=== PATIENT | male | born 1940 | race Caucasian/White ===

== ENCOUNTER 2017-05-24 18:55 | Inpatient (IN) | payer MEDICARE, BC ==
[~2017-05-24] VITALS: Ht 180.3 cm; Wt 90.7 kg
[~2017-05-24 18:55] MED LIST: ATOR10TA69 PO; CLOP75TA33 PO; LACT1CAP56 PO; LEVO75TA7 PO; LORA5SOL6 PO; METF500T4 PO; MULT-1203 PO; PIOG30TA10 PO; PROT40 PO; UBID100C12 PO; VALS40TA4 PO; VIT1TABL86 PO
[2017-05-24] MEDS ORDERED: DEXTROSE 50% WATER 50ML SYRINGE IV PRN (19:45)
[2017-05-24] MEDS ORDERED: CLONIDINE 0.1MG TABLET PO PRN (19:45)
[2017-05-24] MEDS ORDERED: TRAMADOL 50MG TABLET PO PRN (19:45)
[2017-05-24] MEDS ORDERED: NA PHOS,M-B/NA PHOS,DI-BA ENEMA 118ML PR PRN (19:45)
[2017-05-24] MEDS ORDERED: GUAIFENESIN 200MG/10ML SUGAR FREE UDC PO PRN (19:45)
[2017-05-24] MEDS ORDERED: ACETAMINOPHEN 650MG/20.3ML UDC PO PRN (19:45)
[2017-05-24] MEDS ORDERED: ZOLPIDEM TARTRATE 5MG TABLET PO PRN (19:45)
[2017-05-24] MEDS ORDERED: ONDANSETRON HCL 4MG TABLET PO PRN (19:45)
[2017-05-24] MEDS ORDERED: DOCUSATE SODIUM 100MG CAPSULE PO PRN (19:45)
[2017-05-24] MEDS ORDERED: DIPHENHYDRAMINE 25MG CAPSULE PO PRN (19:45)
[2017-05-24] MEDS ORDERED: NITROGLYCERIN 0.4MG TABLET SL SL PRN (19:45)
[2017-05-24] MEDS ORDERED: MAGNESIUM/ALUMINUM HYDROXIDE/SIMETHICONE 30ML UDC PO PRN (19:45)
[2017-05-24] MEDS ORDERED: IPRATROPIUM/ALBUTEROL 0.5-3(2.5)MG/3ML NEB HHN PRN (19:45)
[2017-05-24] MEDS ORDERED: LORAZEPAM 0.5MG TABLET PO PRN (19:45)
[2017-05-24 20:00] VITALS: BP 131/76
[2017-05-24 20:30] VITALS: BP 131/76
[2017-05-24] MEDS: ATORVASTATIN CALCIUM 10MG TABLET PO SCH (21:09)
[2017-05-24] MEDS: BLOOD SUGAR DIAGNOSTIC STRIP TEST SCH (21:10)
[2017-05-24] MEDS: FAMOTIDINE 20MG TABLET PO SCH (21:10)
[2017-05-24] MEDS: LOSARTAN POTASSIUM 25 MG TABLET PO SCH (21:10)
[2017-05-24] MEDS: INSULIN LISPRO 100 UNITS/ML SUBCUT SCH (21:12)
[2017-05-25] MEDS: BLOOD SUGAR DIAGNOSTIC STRIP TEST SCH ×4 (06:16→21:13)
[2017-05-25] MEDS: LEVOTHYROXINE SODIUM 75MCG TABLET PO SCH (06:43)
[2017-05-25] MEDS: INSULIN LISPRO 100 UNITS/ML SUBCUT SCH ×4 (06:47→21:00)
[2017-05-25 07:00] LABS: BASOPHILS % 0.4 % (0.0-2.0); EOSINOPHILS % 2.3 % (0.0-5.0); HEMATOCRIT. 41.8 % (42.0-52.0); HEMOGLOBIN. 14.4 g/dL (14.0-18.0); LYMPHOCYTES % 8.6 % (20.0-50.0); MEAN CORPUSCULAR HEMOGLOBIN 32.6 pg (28.0-32.0); MEAN CORPUSCULAR VOLUME 94.4 fL (80.0-94.0); MEAN PLATELET VOLUME 9.3 fl (7.4-10.4); MONOCYTES % 14.5 % (2.0-8.0); NEUTROPHILS % 74.2 % (40.0-76.0); PLATELET 179 x1000/uL (130-400); RED BLOOD CELL COUNT 4.43 mill/uL (4.7-6.1); RED CELL DISTRIBUTION WIDTH 13.2 % (11.6-14.6)
[2017-05-25 07:37] LABS: CARBON DIOXIDE 27 mEq/L (21-32); CHLORIDE 101 mEq/L (98-107)
[2017-05-25 08:00] VITALS: BP 144/76
[2017-05-25] MEDS: LOSARTAN POTASSIUM 25 MG TABLET PO SCH ×2 (08:49→21:11)
[2017-05-25] MEDS: FAMOTIDINE 20MG TABLET PO SCH ×2 (09:07→21:11)
[2017-05-25] MEDS: CLOPIDOGREL 75MG TABLET PO SCH (09:07)
[2017-05-25] MEDS: ASPIRIN 81MG EC TABLET PO SCH (09:08)
[2017-05-25] MEDS: MAGNESIUM OXIDE 400MG TABLET PO SCH (09:08)
[2017-05-25] MEDS: CHOLECALCIFEROL (VIT D3) 400 UNIT TABLET PO SCH (09:08)
[2017-05-25] MEDS: ENOXAPARIN 40MG/0.4ML SYR SUBCUT SCH (09:11)
[2017-05-25 20:00] VITALS: BP 114/62
[2017-05-25] MEDS: ATORVASTATIN CALCIUM 10MG TABLET PO SCH (21:11)
[2017-05-25] MEDS: AMLODIPINE 5MG TABLET PO SCH (21:12)
[2017-05-26] MEDS: BLOOD SUGAR DIAGNOSTIC STRIP TEST SCH ×4 (06:11→20:47)
[2017-05-26] MEDS: LEVOTHYROXINE SODIUM 75MCG TABLET PO SCH (06:11)
[2017-05-26] MEDS: INSULIN LISPRO 100 UNITS/ML SUBCUT SCH ×4 (06:11→20:47)
[2017-05-26 08:24] VITALS: BP 117/60
[2017-05-26] MEDS: ASPIRIN 81MG EC TABLET PO SCH (09:39)
[2017-05-26] MEDS: MAGNESIUM OXIDE 400MG TABLET PO SCH (09:39)
[2017-05-26] MEDS: CHOLECALCIFEROL (VIT D3) 400 UNIT TABLET PO SCH (09:39)
[2017-05-26] MEDS: CLOPIDOGREL 75MG TABLET PO SCH (09:39)
[2017-05-26] MEDS: FAMOTIDINE 20MG TABLET PO SCH ×2 (09:40→20:23)
[2017-05-26] MEDS: AMLODIPINE 5MG TABLET PO SCH ×2 (09:40→20:24)
[2017-05-26] MEDS: LOSARTAN POTASSIUM 25 MG TABLET PO SCH ×2 (09:41→20:23)
[2017-05-26] MEDS: ENOXAPARIN 40MG/0.4ML SYR SUBCUT SCH (09:42)
[2017-05-26 15:00] VITALS: BP 88/52
[2017-05-26 15:10] VITALS: BP 91/56
[2017-05-26 15:40] VITALS: BP 100/54
[2017-05-26 20:00] VITALS: BP 99/45
[2017-05-26] MEDS: ATORVASTATIN CALCIUM 10MG TABLET PO SCH (20:23)
[2017-05-27 04:00] VITALS: BP 116/64
[2017-05-27] MEDS: LEVOTHYROXINE SODIUM 75MCG TABLET PO SCH (06:07)
[2017-05-27] MEDS: BLOOD SUGAR DIAGNOSTIC STRIP TEST SCH ×4 (06:07→20:44)
[2017-05-27] MEDS: INSULIN LISPRO 100 UNITS/ML SUBCUT SCH ×4 (06:35→20:44)
[2017-05-27 07:21] LABS: AMMONIA 29 uMol/L (<32)
[2017-05-27 08:00] VITALS: BP 104/64
[2017-05-27] MEDS: MAGNESIUM OXIDE 400MG TABLET PO SCH (08:17)
[2017-05-27] MEDS: CHOLECALCIFEROL (VIT D3) 400 UNIT TABLET PO SCH (08:17)
[2017-05-27] MEDS: ASPIRIN 81MG EC TABLET PO SCH (08:17)
[2017-05-27] MEDS: FAMOTIDINE 20MG TABLET PO SCH ×2 (08:18→20:31)
[2017-05-27] MEDS: ENOXAPARIN 40MG/0.4ML SYR SUBCUT SCH (08:18)
[2017-05-27] MEDS: CLOPIDOGREL 75MG TABLET PO SCH (08:18)
[2017-05-27] MEDS: LOSARTAN POTASSIUM 25 MG TABLET PO SCH ×2 (08:19→20:31)
[2017-05-27] MEDS: AMLODIPINE 5MG TABLET PO SCH (08:21)
[2017-05-27 13:56] VITALS: BP 119/65
[2017-05-27 20:00] VITALS: BP 123/61
[2017-05-27] MEDS: ATORVASTATIN CALCIUM 10MG TABLET PO SCH (20:31)
[2017-05-28] MEDS: BLOOD SUGAR DIAGNOSTIC STRIP TEST SCH ×4 (06:08→20:37)
[2017-05-28] MEDS: LEVOTHYROXINE SODIUM 75MCG TABLET PO SCH (06:08)
[2017-05-28] MEDS: INSULIN LISPRO 100 UNITS/ML SUBCUT SCH ×4 (06:36→20:36)
[2017-05-28 08:00] VITALS: BP 120/62
[2017-05-28] MEDS: ASPIRIN 81MG EC TABLET PO SCH (09:25)
[2017-05-28] MEDS: LOSARTAN POTASSIUM 25 MG TABLET PO SCH ×2 (09:25→20:36)
[2017-05-28] MEDS: MAGNESIUM OXIDE 400MG TABLET PO SCH (09:25)
[2017-05-28] MEDS: FAMOTIDINE 20MG TABLET PO SCH ×2 (09:25→20:36)
[2017-05-28] MEDS: CHOLECALCIFEROL (VIT D3) 400 UNIT TABLET PO SCH (09:25)
[2017-05-28] MEDS: CLOPIDOGREL 75MG TABLET PO SCH (09:25)
[2017-05-28] MEDS: ENOXAPARIN 40MG/0.4ML SYR SUBCUT SCH (09:25)
[2017-05-28 20:00] VITALS: BP 113/66
[2017-05-28] MEDS: ATORVASTATIN CALCIUM 10MG TABLET PO SCH (20:36)
[2017-05-29] MEDS: INSULIN LISPRO 100 UNITS/ML SUBCUT SCH ×5 (06:00→20:30)
[2017-05-29] MEDS: BLOOD SUGAR DIAGNOSTIC STRIP TEST SCH ×4 (06:00→20:19)
[2017-05-29] MEDS: LEVOTHYROXINE SODIUM 75MCG TABLET PO SCH (06:00)
[2017-05-29 06:52] LABS: BASOPHILS % 0.4 % (0.0-2.0); EOSINOPHILS % 5.4 % (0.0-5.0); HEMATOCRIT. 40.6 % (42.0-52.0); HEMOGLOBIN. 13.6 g/dL (14.0-18.0); LYMPHOCYTES % 17.4 % (20.0-50.0); MEAN CORPUSCULAR HEMOGLOBIN 31.6 pg (28.0-32.0); MEAN CORPUSCULAR VOLUME 94.6 fL (80.0-94.0); MEAN PLATELET VOLUME 9.3 fl (7.4-10.4); MONOCYTES % 10.5 % (2.0-8.0); NEUTROPHILS % 66.3 % (40.0-76.0); PLATELET 204 x1000/uL (130-400); RED BLOOD CELL COUNT 4.29 mill/uL (4.7-6.1); RED CELL DISTRIBUTION WIDTH 12.9 % (11.6-14.6)
[2017-05-29 08:24] VITALS: BP 111/62
[2017-05-29] MEDS: LOSARTAN POTASSIUM 25 MG TABLET PO SCH ×2 (08:37→20:19)
[2017-05-29 08:40] LABS: CHLORIDE 104 mEq/L (98-107)
[2017-05-29] MEDS: ASPIRIN 81MG EC TABLET PO SCH (08:43)
[2017-05-29] MEDS: MAGNESIUM OXIDE 400MG TABLET PO SCH (08:43)
[2017-05-29] MEDS: CHOLECALCIFEROL (VIT D3) 400 UNIT TABLET PO SCH (08:43)
[2017-05-29] MEDS: FAMOTIDINE 20MG TABLET PO SCH ×2 (08:43→20:19)
[2017-05-29] MEDS: CLOPIDOGREL 75MG TABLET PO SCH (08:43)
[2017-05-29] MEDS: ENOXAPARIN 40MG/0.4ML SYR SUBCUT SCH (08:44)
[2017-05-29 09:24] LABS: CARBON DIOXIDE 24 mEq/L (21-32)
[2017-05-29 19:52] VITALS: BP 121/73
[2017-05-29] MEDS: ATORVASTATIN CALCIUM 10MG TABLET PO SCH (20:19)
[2017-05-30] MEDS: BLOOD SUGAR DIAGNOSTIC STRIP TEST SCH ×4 (05:32→20:47)
[2017-05-30] MEDS: INSULIN LISPRO 100 UNITS/ML SUBCUT SCH ×4 (05:32→20:53)
[2017-05-30] MEDS: LEVOTHYROXINE SODIUM 75MCG TABLET PO SCH (06:05)
[2017-05-30 08:00] VITALS: BP 113/63
[2017-05-30] MEDS: LOSARTAN POTASSIUM 25 MG TABLET PO SCH ×2 (09:00→20:48)
[2017-05-30] MEDS: FAMOTIDINE 20MG TABLET PO SCH ×2 (09:17→20:44)
[2017-05-30] MEDS: MAGNESIUM OXIDE 400MG TABLET PO SCH (09:17)
[2017-05-30] MEDS: CLOPIDOGREL 75MG TABLET PO SCH (09:17)
[2017-05-30] MEDS: CHOLECALCIFEROL (VIT D3) 400 UNIT TABLET PO SCH (09:17)
[2017-05-30] MEDS: ASPIRIN 81MG EC TABLET PO SCH (09:17)
[2017-05-30] MEDS: ENOXAPARIN 40MG/0.4ML SYR SUBCUT SCH (09:18)
[2017-05-30 13:06] LABS: 25-HYDROXY VITAMIN D3 38 ng/mL (.)
[2017-05-30 20:01] VITALS: BP 110/62
[2017-05-30] MEDS: ATORVASTATIN CALCIUM 10MG TABLET PO SCH (20:44)
[2017-05-30] MEDS ORDERED: ZOLPIDEM TARTRATE 5MG TABLET PO PRN (21:45)
[2017-05-31] MEDS: INSULIN LISPRO 100 UNITS/ML SUBCUT SCH ×4 (05:49→20:52)
[2017-05-31] MEDS: BLOOD SUGAR DIAGNOSTIC STRIP TEST SCH ×4 (05:49→20:52)
[2017-05-31] MEDS: LEVOTHYROXINE SODIUM 75MCG TABLET PO SCH (05:56)
[2017-05-31 08:00] VITALS: BP 104/55
[2017-05-31] MEDS: FAMOTIDINE 20MG TABLET PO SCH ×2 (08:26→20:49)
[2017-05-31] MEDS: MAGNESIUM OXIDE 400MG TABLET PO SCH (08:26)
[2017-05-31] MEDS: ASPIRIN 81MG EC TABLET PO SCH (08:26)
[2017-05-31] MEDS: CLOPIDOGREL 75MG TABLET PO SCH (08:26)
[2017-05-31] MEDS: CHOLECALCIFEROL (VIT D3) 400 UNIT TABLET PO SCH (08:26)
[2017-05-31] MEDS: ENOXAPARIN 40MG/0.4ML SYR SUBCUT SCH (08:27)
[2017-05-31] MEDS: LOSARTAN POTASSIUM 25 MG TABLET PO SCH ×2 (08:29→20:49)
[2017-05-31 20:00] VITALS: BP 145/64
[2017-05-31] MEDS: ATORVASTATIN CALCIUM 10MG TABLET PO SCH (20:49)
[2017-06-01] MEDS: BLOOD SUGAR DIAGNOSTIC STRIP TEST SCH ×4 (06:16→21:42)
[2017-06-01] MEDS: LEVOTHYROXINE SODIUM 75MCG TABLET PO SCH (06:16)
[2017-06-01] MEDS: INSULIN LISPRO 100 UNITS/ML SUBCUT SCH ×4 (06:28→21:58)
[2017-06-01 08:00] VITALS: BP 115/58
[2017-06-01] MEDS: LOSARTAN POTASSIUM 25 MG TABLET PO SCH ×2 (09:10→21:53)
[2017-06-01] MEDS: MAGNESIUM OXIDE 400MG TABLET PO SCH (09:10)
[2017-06-01] MEDS: CHOLECALCIFEROL (VIT D3) 400 UNIT TABLET PO SCH (09:10)
[2017-06-01] MEDS: CLOPIDOGREL 75MG TABLET PO SCH (09:10)
[2017-06-01] MEDS: ENOXAPARIN 40MG/0.4ML SYR SUBCUT SCH (09:10)
[2017-06-01] MEDS: FAMOTIDINE 20MG TABLET PO SCH ×2 (09:10→21:41)
[2017-06-01] MEDS: ASPIRIN 81MG EC TABLET PO SCH (09:14)
[2017-06-01 20:00] VITALS: BP 120/52
[2017-06-01] MEDS: ATORVASTATIN CALCIUM 10MG TABLET PO SCH (21:41)
[2017-06-02] MEDS: BLOOD SUGAR DIAGNOSTIC STRIP TEST SCH ×4 (06:27→21:48)
[2017-06-02] MEDS: LEVOTHYROXINE SODIUM 75MCG TABLET PO SCH (06:27)
[2017-06-02] MEDS: INSULIN LISPRO 100 UNITS/ML SUBCUT SCH ×4 (06:30→21:00)
[2017-06-02 07:15] LABS: BASOPHILS % 0.8 % (0.0-2.0); EOSINOPHILS % 3.6 % (0.0-5.0); HEMATOCRIT. 40.9 % (42.0-52.0); HEMOGLOBIN. 14.2 g/dL (14.0-18.0); LYMPHOCYTES % 13.7 % (20.0-50.0); MEAN CORPUSCULAR HEMOGLOBIN 32.7 pg (28.0-32.0); MEAN CORPUSCULAR VOLUME 94.6 fL (80.0-94.0); MEAN PLATELET VOLUME 9.1 fl (7.4-10.4); MONOCYTES % 9.8 % (2.0-8.0); NEUTROPHILS % 72.1 % (40.0-76.0); PLATELET 217 x1000/uL (130-400); RED BLOOD CELL COUNT 4.33 mill/uL (4.7-6.1); RED CELL DISTRIBUTION WIDTH 13.1 % (11.6-14.6)
[2017-06-02] MEDS: MAGNESIUM OXIDE 400MG TABLET PO SCH (08:02)
[2017-06-02] MEDS: FAMOTIDINE 20MG TABLET PO SCH ×2 (08:02→21:48)
[2017-06-02] MEDS: CLOPIDOGREL 75MG TABLET PO SCH (08:02)
[2017-06-02] MEDS: CHOLECALCIFEROL (VIT D3) 400 UNIT TABLET PO SCH (08:02)
[2017-06-02] MEDS: ASPIRIN 81MG EC TABLET PO SCH (08:02)
[2017-06-02] MEDS: ENOXAPARIN 40MG/0.4ML SYR SUBCUT SCH (08:03)
[2017-06-02] MEDS: LOSARTAN POTASSIUM 25 MG TABLET PO SCH ×2 (08:06→21:00)
[2017-06-02 08:14] LABS: CARBON DIOXIDE 28 mEq/L (21-32); CHLORIDE 106 mEq/L (98-107)
[2017-06-02 08:28] VITALS: BP 114/54
[2017-06-02 20:00] VITALS: BP 111/51
[2017-06-02] MEDS: ATORVASTATIN CALCIUM 10MG TABLET PO SCH (21:48)
[2017-06-03] MEDS: BLOOD SUGAR DIAGNOSTIC STRIP TEST SCH ×4 (05:37→21:56)
[2017-06-03] MEDS: INSULIN LISPRO 100 UNITS/ML SUBCUT SCH ×4 (05:37→21:00)
[2017-06-03] MEDS: LEVOTHYROXINE SODIUM 75MCG TABLET PO SCH (06:02)
[2017-06-03 08:00] VITALS: BP 121/63
[2017-06-03] MEDS: LOSARTAN POTASSIUM 25 MG TABLET PO SCH ×2 (09:00→21:56)
[2017-06-03] MEDS: CLOPIDOGREL 75MG TABLET PO SCH (09:11)
[2017-06-03] MEDS: ASPIRIN 81MG EC TABLET PO SCH (09:11)
[2017-06-03] MEDS: CHOLECALCIFEROL (VIT D3) 400 UNIT TABLET PO SCH (09:11)
[2017-06-03] MEDS: FAMOTIDINE 20MG TABLET PO SCH ×2 (09:12→21:56)
[2017-06-03] MEDS: MAGNESIUM OXIDE 400MG TABLET PO SCH (09:12)
[2017-06-03] MEDS: ENOXAPARIN 40MG/0.4ML SYR SUBCUT SCH (09:13)
[2017-06-03 20:00] VITALS: BP 134/56
[2017-06-03] MEDS: ATORVASTATIN CALCIUM 10MG TABLET PO SCH (21:56)
[2017-06-04] MEDS: BLOOD SUGAR DIAGNOSTIC STRIP TEST SCH ×2 (05:53→11:59)
[2017-06-04] MEDS: INSULIN LISPRO 100 UNITS/ML SUBCUT SCH ×2 (05:53→12:49)
[2017-06-04] MEDS: LEVOTHYROXINE SODIUM 75MCG TABLET PO SCH (06:02)
[2017-06-04 08:34] VITALS: BP 153/61
[2017-06-04] MEDS: ASPIRIN 81MG EC TABLET PO SCH (08:43)
[2017-06-04] MEDS: MAGNESIUM OXIDE 400MG TABLET PO SCH (08:43)
[2017-06-04] MEDS: LOSARTAN POTASSIUM 25 MG TABLET PO SCH (08:44)
[2017-06-04] MEDS: CHOLECALCIFEROL (VIT D3) 400 UNIT TABLET PO SCH (08:44)
[2017-06-04] MEDS: CLOPIDOGREL 75MG TABLET PO SCH (08:44)
[2017-06-04] MEDS: FAMOTIDINE 20MG TABLET PO SCH (08:44)
[2017-06-04] MEDS: ENOXAPARIN 40MG/0.4ML SYR SUBCUT SCH (08:46)
[2017-06-04 13:49] VITALS: BP 153/61
[2017-06-05] MEDS ORDERED: ENOXAPARIN 40MG/0.4ML SYR SUBCUT SCH (09:00)
== END 2017-06-04 14:30 | disposition home health service (06) | DRG 71 ==
PROVIDERS: ADMIT Physical Medicine & Rehabilitation Spinal Cord Injury Medicine; ATTEND Internal Medicine
DX: G93.40 Encephalopathy, unspecified (principal); E87.2 Acidosis; I95.9 Hypotension, unspecified; E44.0 Moderate protein-calorie malnutrition; E11.65 Type 2 diabetes mellitus with hyperglycemia; E83.42 Hypomagnesemia; D64.9 Anemia, unspecified; R26.9 Unspecified abnormalities of gait and mobility; I10 Essential (primary) hypertension; I25.10 Atherosclerotic heart disease of native coronary artery without angina pectoris; K21.9 Gastro-esophageal reflux disease without esophagitis; R32 Unspecified urinary incontinence; E78.00 Pure hypercholesterolemia, unspecified; E03.9 Hypothyroidism, unspecified; R47.1 Dysarthria and anarthria; F06.31 Mood disorder due to known physiological condition with depressive features; Z95.810 Presence of automatic (implantable) cardiac defibrillator; Z79.02 Long term (current) use of antithrombotics/antiplatelets; Z79.4 Long term (current) use of insulin; Z86.73 Personal history of transient ischemic attack (TIA), and cerebral infarction without residual deficits; Z68.27 Body mass index [BMI] 27.0-27.9, adult; Z88.1 Allergy status to other antibiotic agents
CPT/HCPCS: 36415; 80048; 80053; 82140; 82306; 82962; 84134; 84630; 85025; 92523; 93970; 97110; 97112; 97116; 97162; 97166; 97530; 97535; A6261; J1650; J1815